=== PATIENT | female | born 1960 ===

== ENCOUNTER → 2019-05-12 | Outpatient (CLI) | payer OTHER | END | disposition home or self-care (01) | LOC: RAD 12:23 | DX: M79.672 Pain in left foot (principal) ==

== ENCOUNTER 2019-06-13 07:24 | Outpatient (CLI) | payer OTHER | END 2019-06-13 07:40 | disposition home or self-care (01) | LOC: NUCLEAR 07:24 | DX: I20.9 Angina pectoris, unspecified (principal) | CPT/HCPCS: 78452; 93017; A9500 ==